=== PATIENT | female | born 1995 | race Caucasian/White ===

== ENCOUNTER 2019-12-31 23:13 | Emergency (ER) | payer OTHER ==
[~2019-12-31] VITALS: Ht 165.1 cm; Wt 68.0 kg
[2020-01-01] MEDS ORDERED: KEFLEX500 MG PO (05:31)
[2020-01-01] MEDS ORDERED: KETO10TA2 PO (05:31)
== END 2020-01-01 06:16 | disposition home or self-care (01) ==
LOC: ER 23:13
DX: N39.0 Urinary tract infection, site not specified (principal); Z03.818 Encounter for observation for suspected exposure to other biological agents ruled out; R10.31 Right lower quadrant pain